=== PATIENT | female | born 1975 | race Caucasian/White ===

== ENCOUNTER 2018-05-17 08:01 | Inpatient (IN) ==
--- NOTE | 2018-05-14 10:34 | XRay Report ---
INDICATION: Preoperative evaluation TECHNIQUE: PA and lateral upright chest x-ray COMPARISON: Previous chest x-rays dated 01/05/2017, 11/04/2015 FINDINGS:Lungs are negative. No parenchymal infiltrate or mass. Heart size and vascularity are normal. Mansi and mediastinum are negative. No pleural fluid. No acute abnormality or interval change IMPRESSION: Negative PA and lateral chest x-ray Interpreted and Authenticated by: Rafael Peterson 05/14/18
[2018-05-14 11:57] LABS: HCG,Serum NEGATIVE <10 (<10 mIU/ml)
[2018-05-14 12:06] LABS: Basophils # (Auto) 0 K/mcL (0.0-0.3); Basophils % (Auto) 0.3 % (0.0-2.0); Eosinophils # (Auto) 0.1 K/mcL (0.0-0.7); Eosinophils % (Auto) 1.1 % (0.0-7.0); Granulocytes % (Auto) 65.7 % (38.0-78.0); Lymphocytes # (Auto) 1.5 K/mcL (1.5-4.8); Mean Cell Volume 91.5 fL (80.0-100.0); Mean Corpuscular HGB Conc 32.4 g/dL (31.0-36.0); Monocytes # (Auto) 0.4 K/mcL (0.1-0.9); Monocytes % (Auto) 6.9 % (1.0-12.0); Platelet Count 298 K/mcL (140-440); RBC 4.64 M/mcL (4.00-5.20); Red Cell Distribution Width 12.5 % (11.5-14.5)
[2018-05-14 12:17] LABS: ALT/SGPT 58 U/l (0-40); Albumin 4.1 gm/dL (3.2-5.2); Albumin/Globulin Ratio 1.3 (1.0-2.3); Alkaline Phosphatase 120 U/L (39-117); Blood Urea Nitrogen 8 mg/dl (6-20)
[2018-05-14 12:47] LABS: Estimated Average Glucose(eAG) 108 mg/dL; Hemoglobin A1C 5.4 % HGB (4.0-6.0)
[~2018-05-17 08:01] MED LIST: LEVOFLOXACIN 750 MG/150 ML BAG IV SCH
[2018-05-17] MEDS ORDERED: LIDOCAINE HCL/PF 100 MG/5 ML SYRINGE IV ONE (10:00)
[2018-05-17] MEDS ORDERED: GLYCOPYRROLATE 0.2 MG/ML VIAL IV ONE (10:00)
[2018-05-17] MEDS ORDERED: fentaNYL 100 MCG/2 ML VIAL IV ONE (10:00)
[2018-05-17] MEDS ORDERED: KETAMINE 100 MG/ML ML IV ONE (10:00)
[2018-05-17] MEDS ORDERED: MIDAZOLAM 2 MG/2 ML VIAL IV ONE (10:00)
[2018-05-17] MEDS ORDERED: PROPOFOL 200 MG/20 ML VIAL IV ONE (10:00)
[2018-05-17] MEDS ORDERED: ONDANSETRON 4 MG/2 ML VIAL IV ONE (10:00)
[2018-05-17] MEDS ORDERED: ROCURONIUM 10 MG/ML ML IV ONE (10:00)
[2018-05-17] MEDS ORDERED: SUGAMMADEX SODIUM 200 MG/2 ML VIAL IV ONE (10:00)
[2018-05-17] MEDS ORDERED: MEPERIDINE 25 MG/ML SYRINGE IV PRN (11:45)
[2018-05-17] MEDS ORDERED: ACETAMINOPHEN 1,000 MG/100 ML BOTTLE IV ONE (11:45)
[2018-05-17] MEDS ORDERED: LACTATED RINGERS 1,000 ML IV SCH (11:45)
[2018-05-17] MEDS ORDERED: IPRATROPIUM/ALBUTEROL 3 ML AMPUL.NEB NEB PRN (11:45)
[2018-05-17] MEDS ORDERED: PROMETHAZINE 25 MG/ML VIAL IM PRN (11:45)
[2018-05-17] MEDS ORDERED: KETOROLAC 30 MG/ML VIAL IV PRN (11:45)
[2018-05-17] MEDS ORDERED: MEPERIDINE 50 MG/ML INJECTION IM PRN (11:45)
--- NOTE | 2018-05-17 12:09 | Brief Operative Note ---
Pre-op diagnosis: acute cholecystitis with cholelithiasis Post-op diagnosis: other (acute empyema with cholecystitis and cholelithiasiswi th anatomic variant of cystic ductand with accessory duct extending from lateral gallbladder and encircling large right hepatic artery) Procedure: laparoscopic cholecystectomy Grafts/Implants: No ([id number]) Anesthesia: GETA Complications: none Surgeon: Trinidad Arora Specimens Removed/Pathology: other (gallbladder) Condition: stable Disposition: PACU
[2018-05-17] MEDS: fentaNYL 100 MCG/2 ML VIAL IV PRN ×4 (12:13→12:31)
[2018-05-17] MEDS ORDERED: ALBUTEROL SULFATE 1 PUFF INHALER INH PRN (12:14)
[2018-05-17] MEDS ORDERED: LORazepam 2 MG/ML VIAL IV PRN (12:34)
[2018-05-17] MEDS: 0.9 % SODIUM CHLORIDE 1,000 ML IV SCH (14:00)
[2018-05-17] MEDS: 0.9 % SODIUM CHLORIDE 10 ML SYRINGE IV SCH ×2 (14:01→22:59)
[2018-05-17] MEDS: PANTOPRAZOLE 40 MG VIAL IV SCH (16:25)
[2018-05-17] MEDS: ONDANSETRON 4 MG/2 ML VIAL IV PRN (16:35)
[2018-05-17] MEDS ORDERED: HYDROmorphone 2 MG/ML VIAL IV PRN (16:37)
[2018-05-17] MEDS: ACETAMINOPHEN 1,000 MG/100 ML BOTTLE IV SCH ×2 (17:38→22:58)
[2018-05-17] MEDS: oxyCODONE HCL 5 MG TABLET PO PRN (22:59)
[2018-05-18] MEDS: 0.9 % SODIUM CHLORIDE 1,000 ML IV SCH ×2 (03:05→16:59)
[2018-05-18 05:24] LABS: Basophils # (Auto) 0 K/mcL (0.0-0.3); Basophils % (Auto) 0.3 % (0.0-2.0); Eosinophils # (Auto) 0 K/mcL (0.0-0.7); Eosinophils % (Auto) 0.3 % (0.0-7.0); Granulocytes % (Auto) 71.8 % (38.0-78.0); Lymphocytes # (Auto) 1.3 K/mcL (1.5-4.8); Mean Corpuscular HGB Conc 33.1 g/dL (31.0-36.0); Monocytes # (Auto) 0.4 K/mcL (0.1-0.9); Monocytes % (Auto) 6.6 % (1.0-12.0); Platelet Count 250 K/mcL (140-440); RBC 4.48 M/mcL (4.00-5.20); Red Cell Distribution Width 12.7 % (11.5-14.5)
[2018-05-18] MEDS: ACETAMINOPHEN 1,000 MG/100 ML BOTTLE IV SCH ×2 (06:00→12:06)
[2018-05-18 06:04] LABS: ALT/SGPT 601 U/l (0-40); Albumin 3.3 gm/dL (3.2-5.2); Albumin/Globulin Ratio 1.1 (1.0-2.3); Alkaline Phosphatase 185 U/L (39-117); Bilirubin,Direct 2.2 mg/dL (0.0-0.3); Blood Urea Nitrogen 4 mg/dl (6-20); Gamma Glutamyl Transpeptidase 366 U/L (5-36); Uric Acid 3.8 mg/dL (2.5-8.0)
[2018-05-18] MEDS: 0.9 % SODIUM CHLORIDE 10 ML SYRINGE IV SCH ×3 (06:11→20:49)
[2018-05-18] MEDS: PANTOPRAZOLE 40 MG VIAL IV SCH ×2 (07:31→16:59)
[2018-05-18] MEDS: LEVOTHYROXINE 100 MCG TABLET PO SCH (07:31)
[2018-05-18] MEDS: oxyCODONE HCL 5 MG TABLET PO PRN ×2 (07:34→22:24)
[2018-05-18] MEDS ORDERED: LEVOFLOXACIN 750 MG/150 ML BAG IV SCH (09:00)
[2018-05-18] MEDS: LEVOFLOXACIN 750 MG/150 ML BAG IV SCH (09:44)
[2018-05-18] MEDS: ONDANSETRON 4 MG/2 ML VIAL IV PRN (11:35)
[2018-05-18] MEDS ORDERED: PROMETHAZINE 25 MG/ML VIAL ONE (15:02)
--- NOTE | 2018-05-18 17:10 | General Surgery Progress Note ---
Subjective Patient reports: still having pain, nausea, vomiting, afebrile Narrative: Note initiated : 05/18/18 at 5:08 pm Service Date, if different from initiated Date: [] Patient: Felicitas Persaud 42 y/o F admitted on for Laparoscopic Cholecystectomy. Chief Complaint: [patient has been having progressive nausea. She states that she only has pain with movement. She also complains of chills. She cannot tolerate liquid diet at this time. Her liver transaminases are elevated and her bilirubin is 3.3. Alkaline phosphatase is minimally elevated at 185. This suggests parenchymal injury rather than obstruction. Will follow the trend over the next 2 days before doing any other investigative studies. If they continue to rise we'll do an MRCP.] Objective Temp Pulse Resp BP Pulse Ox 97.8 F 81 20 115/85 95 05/18/18 15:28 05/18/18 03:31 05/18/18 15:28 05/18/18 15:28 05/18/18 15:28 - Additional Data Intake & Output - Last 24 hours: Intake & Output 05/16/18 05/17/18 05/18/18 05/19/18 05:59 05:59 05:59 05:59 Intake Total 2950 1560 Output Total 2975 1050 Balance -25 510 Weight 212 lb - General physical appearance moderate distress, moderate pain - Eyes PERRL, normal ocular movement - ENT normal pinna, normal nares, normal mucosa, no hearing loss, no congestion - Neck no masses, no bruits, trachea midline, no lymphadenopathy, no venous distension - Respiratory normal expansion, normal respiratory effort, clear to auscultation - Cardiovascular Cardiovascular exam: Present: normal rate and rhythm, RRR, +S1, +S2. Absent: JVD, tachycardia - Abdomen tender (tender abdomen, port sites otherwise benign; good active bowel sounds) - Integumentary no rash, no growths, no abnormal pigmentation - Neurologic normal coordination, normal sensation - Musculoskeletal normal gait, normal posture - Psychiatric oriented to time, oriented to person, oriented to place, speech is normal, memory intact - Labs 05/18/18 04:19 05/18/18 04:19 Diabetes panel 05/18/18 Range/Units 04:19 Sodium 136 (133-145) mmol/L Potassium 3.8 (3.3-5.1) mmol/L Chloride 106 (96-108) mmol/L Carbon Dioxide 20 L (22-30) mmol/L BUN 4 L (6-20) mg/dl Creatinine 0.7 (0.6-1.1) mg/dl Glucose 106 H (70-105) mg/dL Calcium 8.9 (8.6-10.4) mg/dl AST 861 H (0-37) U/l ALT 601 H (0-40) U/l Alkaline Phosphatase 185 H (39-117) U/L Total Protein 6.3 (5.9-8.4) gm/dL Albumin 3.3 (3.2-5.2) gm/dL Triglycerides 74 (<150) mg/dl Calcium panel 05/18/18 Range/Units 04:19 Calcium 8.9 (8.6-10.4) mg/dl Phosphorus 2.8 (2.7-4.5) mg/dL Albumin 3.3 (3.2-5.2) gm/dL Pituitary panel 05/18/18 Range/Units 04:19 Sodium 136 (133-145) mmol/L Potassium 3.8 (3.3-5.1) mmol/L Chloride 106 (96-108) mmol/L Carbon Dioxide 20 L (22-30) mmol/L BUN 4 L (6-20) mg/dl Creatinine 0.7 (0.6-1.1) mg/dl Glucose 106 H (70-105) mg/dL Calcium 8.9 (8.6-10.4) mg/dl Adrenal panel 05/18/18 Range/Units 04:19 Sodium 136 (133-145) mmol/L Potassium 3.8 (3.3-5.1) mmol/L Chloride 106 (96-108) mmol/L Carbon Dioxide 20 L (22-30) mmol/L BUN 4 L (6-20) mg/dl Creatinine 0.7 (0.6-1.1) mg/dl Glucose 106 H (70-105) mg/dL Calcium 8.9 (8.6-10.4) mg/dl Total Bilirubin 3.3 H (0.0-1.0) mg/dL AST 861 H (0-37) U/l ALT 601 H (0-40) U/l Alkaline Phosphatase 185 H (39-117) U/L Total Protein 6.3 (5.9-8.4) gm/dL Albumin 3.3 (3.2-5.2) gm/dL Assessment and Plan (1) Cholelithiasis with acute cholecystitis Status: Acute Assessment and plan: Delay discharge Amylase, lipase, and patient panel, CBC to be done in the morning Martha 12.5 mg IV every 4 hours when necessary We'll do MRCP if transaminases continue to rise Current Visit: Yes - Time Spent With Patient Total time spent is greater than 50% in coordination of care (as documented) at patient's floor/unit and/or counseling patient:
[2018-05-19] MEDS: oxyCODONE HCL 5 MG TABLET PO PRN ×6 (01:58→23:06)
[2018-05-19] MEDS: 0.9 % SODIUM CHLORIDE 1,000 ML IV SCH ×4 (03:23→23:08)
[2018-05-19] MEDS: 0.9 % SODIUM CHLORIDE 10 ML SYRINGE IV SCH ×3 (04:59→21:14)
[2018-05-19] MEDS: LEVOTHYROXINE 100 MCG TABLET PO SCH (07:07)
[2018-05-19] MEDS: PANTOPRAZOLE 40 MG VIAL IV SCH ×2 (07:07→16:43)
[2018-05-19] MEDS: LEVOFLOXACIN 750 MG/150 ML BAG IV SCH (09:21)
[2018-05-19] MEDS: PROMETHAZINE 25 MG/ML VIAL IV PRN (12:07)
[2018-05-19 14:18] LABS: Basophils # (Auto) 0 K/mcL (0.0-0.3); Basophils % (Auto) 0.2 % (0.0-2.0); Eosinophils # (Auto) 0 K/mcL (0.0-0.7); Eosinophils % (Auto) 0.8 % (0.0-7.0); Granulocytes % (Auto) 73.7 % (38.0-78.0); Lymphocytes # (Auto) 1.1 K/mcL (1.5-4.8); Lymphocytes % (Auto) 17.9 % (15.5-49.0); Mean Cell Volume 92.6 fL (80.0-100.0); Mean Corpuscular HGB Conc 32.8 g/dL (31.0-36.0); Monocytes # (Auto) 0.5 K/mcL (0.1-0.9); Monocytes % (Auto) 7.4 % (1.0-12.0); Platelet Count 255 K/mcL (140-440); RBC 4.22 M/mcL (4.00-5.20); Red Cell Distribution Width 13.3 % (11.5-14.5)
--- NOTE | 2018-05-19 14:32 | General Surgery Progress Note ---
Subjective Patient reports: feels better, pain is less, flatus, nausea, afebrile Narrative: Note initiated : 05/19/18 at 2:30 pm Service Date, if different from initiated Date: [] Patient: Felicitas Persaud 42 y/o F admitted on 05/18/18 for Laparoscopic Cholecystectomy. Chief Complaint: [patient states that she feels better. Her nausea is less. She has less pain. Her maximum temperature is 99.3. White blood count is normal as is hemoglobin and hematocrit. Liver panel is pending.] Objective Temp Pulse Resp BP Pulse Ox 97.9 F 94 H 18 134/70 96 05/19/18 11:33 05/19/18 04:00 05/19/18 11:33 05/19/18 11:33 05/19/18 11:33 - Additional Data Intake & Output - Last 24 hours: Intake & Output 05/17/18 05/18/18 05/19/18 05/20/18 05:59 05:59 05:59 05:59 Intake Total 2950 2670 1000 Output Total 2975 1950 800 Balance -25 720 200 Weight 212 lb - General physical appearance well developed, well nourished, no distress - Eyes PERRL, normal ocular movement, icteric - ENT normal pinna, normal nares, normal mucosa, no hearing loss, no congestion - Neck no masses, no bruits, trachea midline, no lymphadenopathy, no venous distension - Respiratory normal expansion, normal respiratory effort, clear to auscultation - Cardiovascular Cardiovascular exam: Present: normal rate and rhythm, JVD, +S1, +S2, tachycardia - Abdomen soft, tender (mouth tenderness around the port sites; good active bowel sounds), bowel sounds (present), surgical scars (none), masses (none) - Integumentary no rash, no growths, no abnormal pigmentation - Neurologic normal coordination, normal sensation - Musculoskeletal normal gait, normal posture - Psychiatric oriented to time, oriented to person, oriented to place, speech is normal, memory intact - Labs 05/19/18 13:20 05/18/18 04:19 Assessment and Plan (1) Cholelithiasis with acute cholecystitis Status: Acute Assessment and plan: Delay discharge Amylase, lipase, and patient panel, CBC to be done in the morning phenergan 12.5 mg IV every 4 hours when necessary We'll do MRCP if transaminases continue to rise Current Visit: Yes - Time Spent With Patient Total time spent is greater than 50% in coordination of care (as documented) at patient's floor/unit and/or counseling patient:
[2018-05-19 14:41] LABS: ALT/SGPT 455 U/l (0-40); Albumin 3.7 gm/dL (3.2-5.2); Albumin/Globulin Ratio 1.5 (1.0-2.3); Alkaline Phosphatase 197 U/L (39-117); Amylase 25 U/L (28-100); Bilirubin,Direct 3.9 mg/dL (0.0-0.3); Blood Urea Nitrogen 3 mg/dl (6-20); Gamma Glutamyl Transpeptidase 361 U/L (5-36); Lipase 38 U/L (7-60); Uric Acid 3.4 mg/dL (2.5-8.0)
[2018-05-20] MEDS: 0.9 % SODIUM CHLORIDE 10 ML SYRINGE IV SCH ×3 (04:32→22:14)
[2018-05-20 05:05] LABS: Basophils # (Auto) 0 K/mcL (0.0-0.3); Basophils % (Auto) 0.2 % (0.0-2.0); Eosinophils # (Auto) 0.1 K/mcL (0.0-0.7); Eosinophils % (Auto) 1.5 % (0.0-7.0); Granulocytes % (Auto) 70.9 % (38.0-78.0); Lymphocytes # (Auto) 1.3 K/mcL (1.5-4.8); Lymphocytes % (Auto) 20.5 % (15.5-49.0); Mean Cell Volume 92.2 fL (80.0-100.0); Mean Corpuscular HGB Conc 32.7 g/dL (31.0-36.0); Monocytes # (Auto) 0.4 K/mcL (0.1-0.9); Monocytes % (Auto) 6.9 % (1.0-12.0); Platelet Count 246 K/mcL (140-440); RBC 4.26 M/mcL (4.00-5.20); Red Cell Distribution Width 13.4 % (11.5-14.5)
[2018-05-20 05:57] LABS: ALT/SGPT 415 U/l (0-40); Albumin 3.6 gm/dL (3.2-5.2); Albumin/Globulin Ratio 1.2 (1.0-2.3); Alkaline Phosphatase 223 U/L (39-117); Bilirubin,Direct 3.4 mg/dL (0.0-0.3); Blood Urea Nitrogen 2 mg/dl (6-20); Gamma Glutamyl Transpeptidase 382 U/L (5-36); Uric Acid 3.4 mg/dL (2.5-8.0)
[2018-05-20] MEDS: PANTOPRAZOLE 40 MG VIAL IV SCH ×2 (07:05→16:33)
[2018-05-20] MEDS: 0.9 % SODIUM CHLORIDE 1,000 ML IV SCH ×3 (07:05→19:54)
[2018-05-20] MEDS: oxyCODONE HCL 5 MG TABLET PO PRN ×3 (07:05→16:33)
[2018-05-20] MEDS: LEVOTHYROXINE 100 MCG TABLET PO SCH (07:05)
[2018-05-20] MEDS: LEVOFLOXACIN 750 MG/150 ML BAG IV SCH (08:47)
[2018-05-20] MEDS ORDERED: MAGNESIUM HYDROXIDE 30 ML ORAL.SUSP PO ONE (12:25)
[2018-05-20] MEDS: MAGNESIUM HYDROXIDE 30 ML ORAL.SUSP PO SCH ×3 (12:55→22:14)
--- NOTE | 2018-05-20 13:11 | Surgical Pathology Report ---
HISTOLOGY SPECIMEN MICROSCOPIC DIAGNOSIS GALLBLADDER, CHOLECYSTECTOMY: -- ACUTE AND CHRONIC CHOLECYSTITIS. -- CHOLELITHIASIS. (DMT:art) CLINICAL HISTORY Epigastric pain. GROSS DESCRIPTION Received in formalin labeled with the patient information is a 6.4 x 3.3 x 0.9 cm pink to purple-javed gallbladder. The serosal surface is smooth and glistening. There is a metal clip present in the cystic duct which appears to have been stapled closed. The lumen contains thick orange-javed material and multiple yellow-green stones ranging in size from 0.1 to 1.5 cm in greatest dimension. The mucosa is pink to red-javed and smooth. The wall is up to 0.3 cm thick. Journalism Professor sections submitted - one cassette. (STS:art) Electronically Signed by: Clark Pan M.D.
[2018-05-20] MEDS: PROMETHAZINE 25 MG/ML VIAL IV PRN (13:32)
--- NOTE | 2018-05-20 16:12 | General Surgery Progress Note ---
Subjective Patient reports: feels better, pain is less, tolerating liquids well, flatus, nausea, afebrile Narrative: Note initiated : 05/20/18 at 4:09 pm Service Date, if different from initiated Date: [] Patient: Felicitas Persaud 42 y/o F admitted on 05/18/18 for Laparoscopic Cholecystectomy. Chief Complaint: [patient is doing well. She has much less pain. Her nausea is also improved. Her white blood count 6.30. Her transaminases and bilirubin still elevated though the SGOT and SGPT O decreased. The alkaline phosphatase is slightly discussed with patient need to have an MRCP done potentially she may need ERCP] Objective Temp Pulse Resp BP Pulse Ox 97.4 F 88 16 142/94 94 05/20/18 15:14 05/20/18 04:00 05/20/18 15:14 05/20/18 15:14 05/20/18 15:14 - Additional Data Intake & Output - Last 24 hours: Intake & Output 05/18/18 05/19/18 05/20/18 05/21/18 05:59 05:59 05:59 05:59 Intake Total 2950 2670 3250 2210 Output Total 2975 1950 1690 1550 Balance -25 720 1560 660 Weight 212 lb 200 lb - General physical appearance well developed, well nourished, no distress, moderate pain - Eyes PERRL, normal ocular movement, icteric - ENT normal pinna, normal nares, normal mucosa, no hearing loss, no congestion - Neck no masses, no bruits, trachea midline, no lymphadenopathy, no venous distension - Respiratory normal expansion, normal respiratory effort, clear to auscultation - Cardiovascular Cardiovascular exam: Present: normal rate and rhythm, RRR, +S1, +S2. Absent: tachycardia - Abdomen tender (tenderness of the port sites; GAUDENCIO drainage is less bilious) - Integumentary no rash, no growths, no abnormal pigmentation - Neurologic normal coordination, normal sensation - Musculoskeletal normal gait, normal posture - Psychiatric oriented to time, oriented to person, oriented to place, speech is normal, memory intact - Labs 05/20/18 04:00 05/20/18 04:00 Diabetes panel 05/20/18 Range/Units 04:00 Sodium 139 (133-145) mmol/L Potassium 3.8 (3.3-5.1) mmol/L Chloride 106 (96-108) mmol/L Carbon Dioxide 24 (22-30) mmol/L BUN 2 L (6-20) mg/dl Creatinine 0.7 (0.6-1.1) mg/dl Glucose 96 (70-105) mg/dL Calcium 9.2 (8.6-10.4) mg/dl AST 263 H (0-37) U/l ALT 415 H (0-40) U/l Alkaline Phosphatase 223 H (39-117) U/L Total Protein 6.5 (5.9-8.4) gm/dL Albumin 3.6 (3.2-5.2) gm/dL Triglycerides 128 (<150) mg/dl Calcium panel 05/20/18 Range/Units 04:00 Calcium 9.2 (8.6-10.4) mg/dl Phosphorus 2.7 (2.7-4.5) mg/dL Albumin 3.6 (3.2-5.2) gm/dL Pituitary panel 05/20/18 Range/Units 04:00 Sodium 139 (133-145) mmol/L Potassium 3.8 (3.3-5.1) mmol/L Chloride 106 (96-108) mmol/L Carbon Dioxide 24 (22-30) mmol/L BUN 2 L (6-20) mg/dl Creatinine 0.7 (0.6-1.1) mg/dl Glucose 96 (70-105) mg/dL Calcium 9.2 (8.6-10.4) mg/dl Adrenal panel 05/20/18 Range/Units 04:00 Sodium 139 (133-145) mmol/L Potassium 3.8 (3.3-5.1) mmol/L Chloride 106 (96-108) mmol/L Carbon Dioxide 24 (22-30) mmol/L BUN 2 L (6-20) mg/dl Creatinine 0.7 (0.6-1.1) mg/dl Glucose 96 (70-105) mg/dL Calcium 9.2 (8.6-10.4) mg/dl Total Bilirubin 4.8 H (0.0-1.0) mg/dL AST 263 H (0-37) U/l ALT 415 H (0-40) U/l Alkaline Phosphatase 223 H (39-117) U/L Total Protein 6.5 (5.9-8.4) gm/dL Albumin 3.6 (3.2-5.2) gm/dL Assessment and Plan (1) Cholelithiasis with acute cholecystitis Status: Acute Assessment and plan: , and patient panel, CBC to be done in the morning phenergan 12.5 mg IV every 4 hours when necessary MRCP will be done today Current Visit: Yes - Time Spent With Patient Total time spent is greater than 50% in coordination of care (as documented) at patient's floor/unit and/or counseling patient:
[2018-05-21] MEDS: oxyCODONE HCL 5 MG TABLET PO PRN ×4 (01:08→17:22)
[2018-05-21] MEDS: 0.9 % SODIUM CHLORIDE 10 ML SYRINGE IV SCH ×3 (05:16→12:37)
[2018-05-21] MEDS: 0.9 % SODIUM CHLORIDE 1,000 ML IV SCH ×2 (05:28→09:26)
[2018-05-21 05:54] LABS: Basophils # (Auto) 0.1 K/mcL (0.0-0.3); Basophils % (Auto) 1.3 % (0.0-2.0); Eosinophils # (Auto) 0.2 K/mcL (0.0-0.7); Eosinophils % (Auto) 2.6 % (0.0-7.0); Granulocytes % (Auto) 68.2 % (38.0-78.0); Lymphocytes # (Auto) 1.3 K/mcL (1.5-4.8); Lymphocytes % (Auto) 21.5 % (15.5-49.0); Mean Cell Volume 92.1 fL (80.0-100.0); Mean Corpuscular HGB Conc 33.9 g/dL (31.0-36.0); Monocytes # (Auto) 0.4 K/mcL (0.1-0.9); Monocytes % (Auto) 6.4 % (1.0-12.0); Platelet Count 196 K/mcL (140-440); RBC 4.34 M/mcL (4.00-5.20); Red Cell Distribution Width 13.8 % (11.5-14.5)
[2018-05-21 05:56] LABS: ALT/SGPT 407 U/l (0-40); Albumin 3.3 gm/dL (3.2-5.2); Albumin/Globulin Ratio 1.1 (1.0-2.3); Alkaline Phosphatase 240 U/L (39-117); Blood Urea Nitrogen < 2 mg/dl (6-20); Gamma Glutamyl Transpeptidase 379 U/L (5-36); Uric Acid 3.3 mg/dL (2.5-8.0)
[2018-05-21] MEDS: LEVOTHYROXINE 100 MCG TABLET PO SCH (07:00)
[2018-05-21] MEDS: PANTOPRAZOLE 40 MG VIAL IV SCH ×2 (07:00→16:38)
[2018-05-21] MEDS: LEVOFLOXACIN 750 MG/150 ML BAG IV SCH (09:26)
[2018-05-21] MEDS ORDERED: LORazepam 2 MG/ML VIAL IV ONE (12:00)
--- NOTE | 2018-05-21 15:12 | General Surgery Progress Note ---
Subjective Patient reports: feels better, pain is less, tolerating liquids well, flatus, bowel movement, afebrile Narrative: Note initiated : 05/21/18 at 3:11 pm Service Date, if different from initiated Date: [] Patient: Felicitas Persaud 42 y/o F admitted on 05/18/18 for Laparoscopic Cholecystectomy. Chief Complaint: [patient is clinically stable. Her discomfort is improved. White blood count 6.1 and hemoglobin 13.6. She remains afebrile. Her bilirubin continues to rise and is at 5.4. GGT, AST and ALT are about the same. Alkaline phosphatase is at 240. MRCP was completed today and it shows a trace defect in the midportion of the common bile duct compatible with common duct injury. Patient has been informed of this injury and I will make arrangements for her to be transferred to the biliary service at [facility] in [place] so that she can have the best chance for repair. With the left duct that is preserved she probably will be able to have a choledochojejunostomy. She is informed that she will need another big operation and she seems to us at this at this time. All labs and pictures and x-rays will be pushed to [facility] where she will be taken care of. She is informed that I will gladly do her follow-up after she has been released from the hospital.] Objective Temp Pulse Resp BP Pulse Ox 97.5 F 75 18 135/90 95 05/21/18 12:00 05/21/18 12:00 05/21/18 12:00 05/21/18 12:00 05/21/18 12:00 - Additional Data Intake & Output - Last 24 hours: Intake & Output 05/19/18 05/20/18 05/21/18 05/22/18 05:59 05:59 05:59 05:59 Intake Total 2670 3250 3750 350 Output Total 1950 1690 4130 560 Balance 720 1560 -380 -210 Weight 200 lb 216 lb 11.2 oz - General physical appearance well developed, well nourished, no distress - Eyes PERRL (Jesse), normal ocular movement - ENT normal pinna, normal nares, normal mucosa, no hearing loss, no congestion - Neck no masses, no bruits, trachea midline, no lymphadenopathy, no venous distension - Respiratory normal expansion, normal respiratory effort, clear to auscultation - Cardiovascular Cardiovascular exam: Present: normal rate and rhythm, RRR, +S1, +S2. Absent: JVD, tachycardia - Abdomen tender ( mild tenderness oval port sites; GAUDENCIO drainage is bloody) - Integumentary no rash, no growths, no abnormal pigmentation - Neurologic normal coordination, normal sensation - Musculoskeletal normal gait, normal posture - Psychiatric oriented to time, oriented to person, oriented to place, speech is normal, roselyn ry intact - Labs 05/21/18 04:00 05/21/18 04:00 Diabetes panel 05/21/18 Range/Units 04:00 Sodium 138 (133-145) mmol/L Potassium 3.5 (3.3-5.1) mmol/L Chloride 104 (96-108) mmol/L Carbon Dioxide 23 (22-30) mmol/L BUN < 2 L (6-20) mg/dl Creatinine 0.6 (0.6-1.1) mg/dl Glucose 104 (70-105) mg/dL Calcium 8.8 (8.6-10.4) mg/dl AST 329 H (0-37) U/l ALT 407 H (0-40) U/l Alkaline Phosphatase 240 H (39-117) U/L Total Protein 6.2 (5.9-8.4) gm/dL Albumin 3.3 (3.2-5.2) gm/dL Triglycerides 140 (<150) mg/dl Calcium panel 05/21/18 Range/Units 04:00 Calcium 8.8 (8.6-10.4) mg/dl Phosphorus 2.7 (2.7-4.5) mg/dL Albumin 3.3 (3.2-5.2) gm/dL Pituitary panel 05/21/18 Range/Units 04:00 Sodium 138 (133-145) mmol/L Potassium 3.5 (3.3-5.1) mmol/L Chloride 104 (96-108) mmol/L Carbon Dioxide 23 (22-30) mmol/L BUN < 2 L (6-20) mg/dl Creatinine 0.6 (0.6-1.1) mg/dl Glucose 104 (70-105) mg/dL Calcium 8.8 (8.6-10.4) mg/dl Adrenal panel 05/21/18 Range/Units 04:00 Sodium 138 (133-145) mmol/L Potassium 3.5 (3.3-5.1) mmol/L Chloride 104 (96-108) mmol/L Carbon Dioxide 23 (22-30) mmol/L BUN < 2 L (6-20) mg/dl Creatinine 0.6 (0.6-1.1) mg/dl Glucose 104 (70-105) mg/dL Calcium 8.8 (8.6-10.4) mg/dl Total Bilirubin 5.4 H (0.0-1.0) mg/dL AST 329 H (0-37) U/l ALT 407 H (0-40) U/l Alkaline Phosphatase 240 H (39-117) U/L Total Protein 6.2 (5.9-8.4) gm/dL Albumin 3.3 (3.2-5.2) gm/dL Assessment and Plan (1) Cholelithiasis with acute cholecystitis Status: Acute Assessment and plan: , and patient panel, CBC to be done in the morning phenergan 12.5 mg IV every 4 hours when necessary MRCP will be done today Current Visit: Yes (2) Injury of common bile duct during operative procedure Status: Acute Assessment and plan: Patient will be transferred to [facility] to the hepatobiliary service for follow-up care and even a choledocho jejunostomy or hepaticojejunostomy Rosangela-en-Y. She is informed that this would give her the best chance for good long-term results. Current Visit: Yes - Time Spent With Patient Total time spent is greater than 50% in coordination of care (as documented) at patient's floor/unit and/or counseling patient:
--- NOTE | 2018-05-21 16:47 | Magnetic Resonance Report ---
CLINICAL INFORMATION: Patient is status post cholecystectomy and complaining of pain TECHNIQUE: Axial and coronal images. Routine MRCP. Intravenous contrast material was not administered. Conscious sedation was given by the department of anesthesiology COMPARISON: Abdominal ultrasound dated 04/04/2018 FINDINGS: Patient underwent cholecystectomy on 05/17/2018. There is abnormal signal within the gallbladder fossa. This may be secondary to postsurgical packing material. There is an apparent surgical drain exiting the right upper quadrant. No significant free intraperitoneal fluid identified. No detectable pneumoperitoneum although MRI scanning is not sensitive for free intraperitoneal gas bubbles. Liver is negative. No focal abnormality. Liver contour is smooth. Pancreas is negative. No pancreatic mass. No peripancreatic abnormality. Spleen is negative. Adrenal glands are negative. Kidneys are negative. No solid or cystic mass. No hydronephrosis. There is artifactual signal void related to surgical clips in the gallbladder fossa. MRCP is otherwise negative. Common hepatic duct and common bile duct are negative. No intraluminal filling defects. No intrahepatic bile duct dilatation. IMPRESSION: 1. Status post cholecystectomy. Signal abnormality in the gallbladder fossa is probably secondary to surgical packing 2. Negative MRCP. There is artifactual signal dropout but no obstruction. No detectable choledocholithiasis 3. No significant free fluid or contained fluid indicate significant bile leak Interpreted and Authenticated by: Rafael Peterson 05/21/18
--- NOTE | 2018-05-21 17:22 | Discharge Summary ---
Providers - Providers Patient information: Note initiated : 05/21/18 at 5:15 pm Service Date, if different from initiated Date: [] Patient: Felicitas Persaud 42 y/o F admitted on 05/18/18 for Laparoscopic Cholecystectomy. Chief Complaint: [] Date of admission: 05/17/18 Discharge date: 05/21/18 Attending physician: Trinidad Arora Hospitalization Hospital course: 42-year-old female admitted on 17 May after undergoing laparoscopic cholecystectomy. Intraoperatively it was noted that the patient had a severely inflamed gallbladder and the ductal structures appear to be aberrant. The normal cystic duct was noted to enter the lateral aspect of the infundibulum lateral to the cystic artery. There was another structure which entered the gallbladder posterior medially. Because of this a dome down dissection was done until the gallbladder was only attached to the structure. The structure divided and entered the gallbladder on either side of right hepatic artery. This structure was divided totally from the surrounding structures and only adherent to the posterior medial aspect of the gallbladder. On the first postoperative day the LFTs and bilirubin were elevated significantly. The GAUDENCIO drainage was slightly bilious but not of large volume. The LFTs trended down on the second day but the bilirubin slowly increase. Because of concern of ductal injury and MRCP was attempted but the patient became severely agitated in the scanner so she was sedated today and MRCP was completed. This shows that there has been injury to the midportion of the duct. The patient will need to have either choledocho or hepaticojejunostomy so the biliary surgeon at [facility] was contacted and he has been gracious enough to accept her. Because of the weather she has been transferred by fixed wing aircraft tonight. The patient has been afebrile throughout this time. She is informed of the injury and informed of the need for more surgery and recuperation. Discharge diagnosis: acute cholecystitis with cholelithiasis Secondary discharge diagnosis: Intraoperative common bile duct injury Reason for admission: postoperative cholecystectomy Procedures: Laparoscopic cholecystectomy Pertinent studies/significant findings: MRCP Complications: Intraoperative common bile duct injury Exam Temp Pulse Resp BP Pulse Ox 97.1 F 81 18 134/96 96 05/21/18 16:00 05/21/18 16:00 05/21/18 16:00 05/21/18 16:00 05/21/18 16:00 - General physical appearance well developed, well nourished, no distress - Eyes PERRL, normal ocular movement, icteric - ENT normal pinna, normal nares, normal mucosa, no hearing loss, no congestion - Head Head exam IM: Present: atraumatic, normocephalic - Neck no masses, no bruits, trachea midline, no lymphadenopathy, no venous distension - Cardiovascular Cardiovascular exam IM: Present: normal rate and rhythm, RRR, +S1, +S2. Absent: JVD, tachycardia - Respiratory normal expansion, normal respiratory effort, clear to auscultation - Abdomen Abdomen: Present: soft, tender (mild tenderness around port sites; serosanguineous drainage in [place]), bowel sounds Hernia: Present: none - Genitourinary Present: normal external genitalia - Integumentary Present: no rash, no growths, no abnormal pigmentation - Neurologic Present: normal coordination, normal sensation - Musculoskeletal Present: normal gait, normal posture - Psychiatric Present: oriented to time, oriented to person, oriented to place, speech is normal, memory intact Discharge Plan - Patient/Caregiver Discharge Instructions Activity: as instructed Diet: Full Liquid - Follow up Plan Follow up with: Trinidad Arora MD [Physician] - 06/06/18 1:45 pm Disposition: [facility] Prognosis: Good Rehab Potential: Good I certify that the patient requires SNF services.: No Overall status at discharge: patient is not back to baseline Pending Studies Resuscitation Status Full Code Diet Full Liquid Diet Start Sun May 19 0844 Hydromorphone HCl (Dilaudid) 1 mg IV Q2HP PRN PRN Reason: PAIN LEVEL > 6 Last Admin: 05/19/18 01:58 Dose: 1 mg Documented by: DILLON Sodium Chloride (Sodium Chloride 0.9%) 1,000 mls @ 75 mls/hr IV .[id number] GANESH Last Admin: 05/21/18 09:26 Dose: Not Given Documented by: Admin: 05/21/18 05:28 Dose: 75 mls/hr Documented by: Infusion: 05/21/18 05:27 Dose: 75 mls/hr Documented by: Admin: 05/20/18 19:54 Dose: Not Given Documented by: PRISCLILAOSSERT Admin: 05/20/18 15:03 Dose: 75 mls/hr Documented by: Infusion: 05/20/18 12:28 Dose: 75 mls/hr Documented by: Admin: 05/20/18 07:05 Dose: Not Given Documented by: Admin: 05/19/18 23:08 Dose: 75 mls/hr Documented by: Infusion: 05/19/18 22:41 Dose: 75 mls/hr Documented by: Admin: 05/19/18 18:27 Dose: Not Given Documented by: Admin: 05/19/18 09:21 Dose: 75 mls/hr Documented by: Infusion: 05/19/18 06:19 Dose: 75 mls/hr Documented by: Admin: 05/19/18 03:23 Dose: Not Given Documented by: Admin: 05/18/18 16:59 Dose: 75 mls/hr Documented by: Infusion: 05/18/18 16:25 Dose: 75 mls/hr Documented by: Admin: 05/18/18 03:05 Dose: 75 mls/hr Documented by: [email or web address] Infusion: 05/18/18 03:05 Dose: 75 mls/hr Documented by: [email or web address] Admin: 05/17/18 14:00 Dose: 75 mls/hr Documented by: [email or web address] Levofloxacin (Levaquin) 750 mg in 150 mls @ 100 mls/hr IV Q24H GANESH Last Infusion: 05/21/18 16:25 Dose: 0 mls/hr Documented by: Admin: 05/21/18 09:26 Dose: 100 mls/hr Documented by: Infusion: 05/20/18 11:03 Dose: 0 mls/hr Documented by: Admin: 05/20/18 08:47 Dose: 100 mls/hr Documented by: Infusion: 05/19/18 11:00 Dose: 0 mls/hr Documented by: Admin: 05/19/18 09:21 Dose: 100 mls/hr Documented by: Infusion: 05/18/18 12:00 Dose: 0 mls/hr Documented by: Admin: 05/18/18 09:44 Dose: 100 mls/hr Documented by: [email or web address] Levothyroxine Sodium (Synthroid) 200 mcg PO ACB GANESH Last Admin: 05/21/18 07:00 Dose: 200 mcg Documented by: Admin: 05/20/18 07:05 Dose: 200 mcg Documented by: Admin: 05/19/18 07:07 Dose: 200 mcg Documented by: Admin: 05/18/18 07:31 Dose: 200 mcg Documented by: [email or web address] Ondansetron HCl (Zofran) 4 mg IV Q4HP PRN PRN Reason: Nausea And Vomiting Last Admin: 05/18/18 11:35 Dose: 4 mg Documented by: [email or web address] Admin: 05/17/18 16:35 Dose: 4 mg Documented by: [email or web address] Oxycodone HCl (Roxicodone) 10 mg PO Q4HP PRN PRN Reason: PAIN LEVEL 3-6 Last Admin: 05/21/18 12:36 Dose: 10 mg Documented by: Admin: 05/21/18 07:00 Dose: 10 mg Documented by: Admin: 05/21/18 01:08 Dose: 10 mg Documented by: Admin: 05/20/18 16:33 Dose: 10 mg Documented by: Admin: 05/20/18 11:37 Dose: 10 mg Documented by: Admin: 05/20/18 07:05 Dose: 10 mg Documented by: Admin: 05/19/18 23:06 Dose: 10 mg Documented by: Admin: 05/19/18 18:23 Dose: 10 mg Documented by: Admin: 05/19/18 14:36 Dose: 10 mg Documented by: Admin: 05/19/18 10:02 Dose: 10 mg Documented by: Admin: 05/19/18 06:13 Dose: 10 mg Documented by: Admin: 05/19/18 01:58 Dose: 10 mg Documented by: Admin: 05/18/18 22:24 Dose: 10 mg Documented by: Admin: 05/18/18 07:34 Dose: 10 mg Documented by: Admin: 05/17/18 22:59 Dose: 10 mg Documented by: [email or web address] Pantoprazole Sodium (Protonix) 40 mg IV BIDAC [facility] Last Admin: 05/21/18 16:38 Dose: 40 mg Documented by: Admin: 05/21/18 07:00 Dose: 40 mg Documented by: Admin: 05/20/18 16:33 Dose: 40 mg Documented by: Admin: 05/20/18 07:05 Dose: 40 mg Documented by: Admin: 05/19/18 16:43 Dose: 40 mg Documented by: Admin: 05/19/18 07:07 Dose: 40 mg Documented by: Admin: 05/18/18 16:59 Dose: 40 mg Documented by: Admin: 05/18/18 07:31 Dose: 40 mg Documented by: Admin: 05/17/18 16:25 Dose: 40 mg Documented by: [email or web address] Promethazine HCl (Phenergan) 12.5 mg IV Q4HP PRN PRN Reason: Nausea And Vomiting Last Admin: 05/20/18 13:32 Dose: 12.5 mg Documented by: Admin: 05/19/18 12:07 Dose: 12.5 mg Documented by: [email or web address] Sodium Chloride (Saline Flush) 10 ml IV Q8 [facility] Last Admin: 05/21/18 12:37 Dose: 10 ml Documented by: Admin: 05/21/18 05:16 Dose: Not Given Documented by: PRISCILLAOSSERT Admin: 05/21/18 05:16 Dose: 10 ml Documented by: PRISCILLAOSSERT Admin: 05/20/18 22:14 Dose: Not Given Documented by: PRISCILLAOSSERT Admin: 05/20/18 13:32 Dose: Not Given Documented by: Admin: 05/20/18 04:32 Dose: Not Given Documented by: Admin: 05/19/18 21:14 Dose: Not Given Documented by: Admin: 05/19/18 12:00 Dose: Not Given Documented by: Admin: 05/19/18 04:59 Dose: Not Given Documented by: Admin: 05/18/18 20:49 Dose: Not Given Documented by: Admin: 05/18/18 12:25 Dose: Not Given Documented by: Admin: 05/18/18 06:11 Dose: Not Given Documented by: [email or web address] Admin: 05/17/18 22:59 Dose: Not Given Documented by: [email or web address] Admin: 05/17/18 14:01 Dose: Not Given Documented by: [email or web address] Shift Summary 05/21/18 15:21 Shift Summary by Farideh Sanchez Pt is A/O. Up ad estefania in room and SBA in the hallway. Needs some encouragement to walk out in the hallway. Has been voiding without difficulty. Bowel tones are active and has been passing flatus, but no BM. Medicated with oxycodone 10mg x2 so far, with last dose at about 1245. No complaints of nausea today. Lap sites and GAUDENCIO drain site intact- had 10ml output so far this shift. Has NS @75 to the L. wrist/hand. Had an MRCP today, which revealed an injury to her common bile duct. Tentative plan is she will transport to [facility] in [place] at some point to have it repaired. Initialized on 05/21/18 15:21 - END OF NOTE
--- NOTE | 2018-06-25 15:32 | Operative Note ---
DATE OF OPERATION: 05/18/2018 PROCEDURE DATE: 05/17/2018 PREOPERATIVE DIAGNOSES: Acute cholecystitis with cholelithiasis. POSTOPERATIVE DIAGNOSES: Acute empyema of the gallbladder with cholecystitis and cholelithiasis with associated anatomic variant of cystic duct with accessory duct extending from the medial wall of the gallbladder and encircling a large right hepatic artery. PROCEDURE PERFORMED: Laparoscopic cholecystectomy. SURGEON: Trinidad Arora M.D. DESCRIPTION OF PROCEDURE: Under general anesthesia, the patient's abdomen was prepped and draped in a sterile field. Timeout procedure was carried out as per protocol. A supraumbilical incision was made and Veress needle was inserted uneventfully. Abdomen was insufflated with 2.3 liters of CO2. A 12 mm port was placed. Laparoscope was placed. Under videoscopic guidance, a 12 mm port and two 5 mm ports were placed in the right subcostal region. The patient was placed in reverse Trendelenburg position and rotated to the left. The gallbladder was severely inflamed and was densely adherent to the subhepatic space. It was grasped with the self-retaining grasper and placed on stretch. The infundibulum was scored on the wall of the gallbladder, and using blunt dissection was dissected down to the area of the cystic duct. Once the cystic duct was identified, it was quite apparent that it was an aberrant duct in that it appeared to enter from the more medial aspect of the gallbladder. Cystic artery branch was followed and cystic artery branch was noted to be coming off of a rather large right hepatic artery. It was followed onto the wall of the gallbladder and was clipped and excised. Once this was done, I was able to have a more direct view of the cystic duct, but because of its aberrant presentation it was elected to dissect the gallbladder higher up from the midportion extending towards the dome first. This was carried out with some difficulty. Once this was done, I then was able to follow the posterior wall of the gallbladder down to the cystic ductal structure. It was encircled and pictures were taken for confirmation. Once this was done, there was no other structure entering the gallbladder. This structure seemed to be associated with another accessory-type duct that entered the posterior wall of the gallbladder. This was followed directly to the gallbladder wall, and I was sure that it was entering directly into the posterior wall of the gallbladder. An attempt was made to try to separate it from the gallbladder wall, and there was no separation. This duct was clipped with four clips and divided. At the end of this dissection, the larger ductal structure entered the more medial aspect of the infundibulum and went directly into the gallbladder and down to what appeared to be a normal-appearing common bile duct. It was felt that the ductal structures were so fibrotic that a cholangiogram would not be possible, and since the duct entered the direct aspect of the infundibulum, I felt that it would be best to ligate this on the wall of the gallbladder. This was done with an Endo CLEOPATRA stapler on the wall of the gallbladder. This freed up the gallbladder, and the most superior portion of the dome was then using blunt dissection. Because of the anatomic variation, four pictures were taken during the procedure and reviewed at each point. Irrigation was carried out. The gallbladder was placed in an Endopouch and retrieved. GAUDENCIO drain was placed in the subhepatic space and brought out through the most lateral port. CO2 was allowed to escape from the abdomen, and the ports were removed. The patient tolerated the procedure well. Fascia of the umbilicus was closed with interrupted 0 Vicryl. Skin incisions were closed with pinky. The patient tolerated the procedure well. She was awakened, transferred to a bed, and taken to the postanesthetic care unit in stable, satisfactory condition. LCS:troy Job ID: [id number] Doc ID: [id number] Trinidad Arora M.D.
== END 2018-05-21 17:45 | disposition short-term general hospital (02) | DRG 418 ==
LOC: SUR 08:01 → MEDSUR 13:01
PROVIDERS: ADMIT Family Medicine Adult Medicine; ATTEND Family Medicine Adult Medicine